=== PATIENT | female | born 1975 | race Caucasian/White ===

== ENCOUNTER 2016-12-23 07:58 | Day surgery (SDC) | payer OTHER ==
[2016-12-23] VITALS (9 sets, daily range): BP systolic 87–137; BP diastolic 46–97; PULSE 61–88; RESP 16–20; TEMP 97.9–98.2; O2SAT 91–99
[~2016-12-23] VITALS: Ht 157.5 cm; Wt 70.5 kg
[2016-12-23] MEDS ORDERED: SPIR100T PO (08:17)
[2016-12-23] MEDS ORDERED: VALA1TAB PO (08:18)
[2016-12-23] MEDS ORDERED: SODIUM CHLOR 0.9% 1000 ML IV SCH (08:30)
[2016-12-23] MEDS ORDERED: MIDAZOLAM HCL 2 MG/2 ML VIAL ONE (10:33)
[2016-12-23] MEDS ORDERED: LIDOCAINE 1%/EPINEPHrine 1:100,000 SOLN 20 ML VIAL ONE (11:02)
--- NOTE | 2016-12-23 11:38 | PD.RAD ---
Post CT Procedure Prog Note Pre Procedure Diagnosis: (1) LFT elevation Post Procedure Diagnosis: (1) LFT elevation Procedure Date: Dec 23, 2016 Supervising Radiologist: Parker Herbert JR Anesthesia: Conscious Sedation Plan of Activity Patient to Unit: ROPU Patient Condition: Good See PACS Report for procedural detail/treatment Biopsy Imaging Guidance: CT Biopsy Procedure: Liver Specimen: Core Biopsy Findings: Liver core sample taken for LFTs. Good sample noted. No hemorrhage on post bx imaging. Jr. Keon,Parker Mijares MD Dec 23, 2016 11:38
--- NOTE | 2016-12-23 12:09 | RADRPT ---
EXAM DATE/TIME: 12/23/2016 11:22 [place] COMPARISON: No previous studies available for comparison. INDICATIONS : Elevated liver enzymes. SEDATION TIME: 30 minutes BIOPSY SITE: Right MEDICATION(S): 1.) 4 mg midazolam (Versed) IV 2.) 200 mcg fentanyl (Sublimaze) IV DEVICE(S): 1.) 18 gauge BioPince needle MEDICAL HISTORY : None. SURGICAL HISTORY : None. ENCOUNTER: Initial ACUITY: 1 day PAIN SCORE: 0/10 LOCATION: Right A total of one core specimen(s) were obtained and sent to the laboratory for pathologic evaluation. PROCEDURE: 1. CT guided liver biopsy. 2. Conscious sedation with continuous EKG and oximetry monitoring. 3. EKG and oximetry remained stable throughout the procedure. Prior to the procedure informed consent was obtained. Any appropriate prior imaging studies were rev iewed. Using automated exposure control and adjustment of the mA and/or kV according to patient size, radiat ion dose was kept as low as reasonably achievable to obtain optimal diagnostic quality images. DICOM format image data is available electronically for review and comparison. The site was prepped in a sterile fashion. Full sterile technique was used, including cap, mask, sintia rile gloves and gown and a large sterile sheet. Hand hygiene and 2% chlorhexidine and/or betadine/al cohol prep was utilized per protocol for cutaneous antisepsis. The skin and subcutaneous tissues wer e infiltrated with local anesthetic solution. With CT guidance the previously identified target was localized. Biopsy was performed using the presc ribed needle as above. Adequate hemostasis was obtained with compression at the puncture site. Follow-up CT scan reveals no hemorrhage. The patient tolerated the procedure well and there were no complications. The patient was returned to the Radiology Outpatient Unit in stable condition. CONCLUSION: Uncomplicated CT guided liver core biopsy. Parker Herbert Jr., MD on December 23, 2016 at 12:07 Board Certified Radiologist. This report was verified electronically.
== END 2016-12-23 15:27 | disposition home or self-care (01) ==
LOC: HRAD 07:58 → HRIP 08:01 → HRAD 15:27
PROVIDERS: ATTEND Internal Medicine Gastroenterology
DX: K76.0 Fatty (change of) liver, not elsewhere classified (principal); E83.19 Other disorders of iron metabolism
CPT/HCPCS: 47000; 77012; 88307; 88313; J2250; J3010; J7030